=== PATIENT | male | born 1940 | race Caucasian/White ===

== ENCOUNTER 2016-08-23 21:58 | Inpatient (IN) | payer MEDICARE ==
[~2016-08-23] VITALS: Ht 177.8 cm; Wt 69.9 kg
[2016-08-23] MEDS ORDERED: ASPI81TA31 PO (22:22)
[2016-08-23] MEDS ORDERED: ATOR20TA PO (22:22)
[2016-08-23] MEDS ORDERED: AMIO200T2 PO (22:22)
[2016-08-23] MEDS ORDERED: FERR-56 PO (22:23)
[2016-08-23] MEDS ORDERED: ISOS10TA2 PO (22:29)
[2016-08-23] MEDS ORDERED: DIPH25CA83 PO (22:29)
[2016-08-23] MEDS ORDERED: BENZ1LOZ58 PO (22:29)
[2016-08-23] MEDS ORDERED: HYDR-894 PO (22:29)
[2016-08-23] MEDS ORDERED: NEOMY/BACITRA/POLYMYXIN B OINT UD PACKET TP ONE ×2 (22:30→22:42)
--- NOTE | 2016-08-23 22:39 | NUR ---
Patient medically cleared per ERMD, Pt. admitted to GPS, under care of Dr. Epps Belongs List completed.
[2016-08-23 22:50] VITALS: BP 113/67
[2016-08-23] MEDS ORDERED: MAG HYDROX/AL HYDROX/SIMETH 30 ML LIQUID UDC PO PRN (23:00)
[2016-08-23] MEDS ORDERED: MAGNESIUM HYDROXIDE 30 ML LIQUID UDC PO PRN (23:00)
[2016-08-23] MEDS ORDERED: ACETAMINOPHEN 650 MG SUPP.RECT RC PRN (23:00)
--- NOTE | 2016-08-23 23:30 | NUR ---
NEW ADMIT PT IS A 76 YEAR OLD MALE ADMIT TO MHU ON 5150 DTO. ACCORDING TO HOLD PT REFUSING MEDICATION AND HAD ACTING OUT EPISODE WHERE [facility] WHERE HE BECAME AGITATED WITH STAFF AND THREW PHONE IN TO NURSING STATION. UPON FACE TO FACE PT IS AOX3, INITIALLY PRESENTED CALM AND COOPERATIVE BUT BECAME HYPERVERBAL, PRESSURED SPEECH AND DISORGANIZED THOUGHT. PT RAMBLES ABOUT EX- AND MAKES DELUSIONAL STATEMENTS THAT HE IS PART OF THE SERENITY. PT IS ABLE TO BE REDIRECTED AND REFUSING MEDIATION AT THIS TIME. DENIES ANY SI/HI. DENIES A/V HALLUCINATIONS. NO ACUTE DISTRESS NOTED. SKIN TEAR NOTED TO RIGHT ARM AND ABRASION TO LEFT ARM. SAFETY MEASURES MAINTAINED.
[2016-08-23] MEDS ORDERED: ASPIRIN 81 MG TAB.CHEW PO SCH (23:45)
[2016-08-24] MEDS: ZOLPIDEM 5 MG TABLET PO PRN ×2 (00:41→22:54)
[2016-08-24] MEDS ORDERED: ZOLPIDEM 5 MG TABLET ONE (00:50)
[2016-08-24 07:30] VITALS: BP 161/94
[2016-08-24] MEDS: ISOSORBIDE DINITRATE 10 MG TABLET PO SCH ×3 (07:59→21:00)
[2016-08-24] MEDS: AMIODARONE HCL 200 MG TABLET PO SCH ×3 (08:00→21:00)
[2016-08-24] MEDS: FERROUS SULFATE 325 MG TABEC PO SCH ×3 (08:05→21:00)
[2016-08-24] MEDS: ASPIRIN 81 MG TAB.CHEW PO SCH (08:05)
[2016-08-24 11:30] VITALS: BP 123/78
--- NOTE | 2016-08-24 14:00 | NUR ---
GPS/RN- Mary Khalil, N.P. notified of patient fall history at facility and bruising on buttocks, orders received for xrays
[2016-08-24] MEDS: ACETAMINOPHEN 325 MG TABLET PO PRN ×2 (15:13→23:35)
--- NOTE | 2016-08-24 15:40 | NUR ---
Initial discharge instructions: Patient was residing at [facility] [[address] [place] [address]].Spoke with Kristina at the facility who stated the patient may not return.Per pt,he is open to being transferred to the [facility] or another SNF if needed.RAFAT spoke and met with pt's ,Isabela [phone] and daughter,Vida [phone] who agreed to either [facility] transfer or SNF if no bed is available at the [facility].RAFAT called pt's [facility] Senior Enlisted Advisor,Mary [phone] who stated they do not to [facility] transfers there.Per Ventura Hernandez [phone] Transfer center must be called. RAFAT will speak with pt,family,and MD regarding nancy
[2016-08-24 16:00] VITALS: BP 111/65
[2016-08-24] MEDS: DIVALPROEX SPRINKLE 125 MG CAP.SPRINK PO SCH (16:18)
[2016-08-24] MEDS: OLANZAPINE ZYDIS 5 MG TAB.RAPDIS PO SCH ×2 (16:18→20:09)
[2016-08-24 20:05] VITALS: BP 126/64
[2016-08-24] MEDS: ATORVASTATIN 20 MG TABLET PO SCH (20:09)
--- NOTE | 2016-08-24 23:36 | NUR ---
PT C/O BACK PAIN AND REQUESTED FOR TYLE, MED GIVEN, BUT PT STARTED COUGHING AND SPIT OUT MED, WILL CONTINUE TO MONITOR.
[2016-08-25 07:15] LABS: BASOPHILS % (AUTO) 1.3 % (0.0-2.0); EOSINOPHILS # (AUTO) 0.2 K/uL (0.0-0.7); EOSINOPHILS % (AUTO) 5.9 % (0.0-7.0); HEMATOCRIT 26.7 % (36.7-47.1); HEMOGLOBIN 8.8 g/dL (12.5-16.3); LYMPHOCYTES # (AUTO) 0.7 K/uL (20.0-40.0); LYMPHOCYTES % (AUTO) 25.1 % (20.5-51.5); MEAN CORPUSCULAR HEMOGLOBIN 29.2 uug (23.8-33.4); MEAN CORPUSCULAR HGB CONC 33 g/dL (32.5-36.3); MEAN CORPUSCULAR VOLUME 88.9 fL (73.0-96.2); MONOCYTES # (AUTO) 0.3 K/uL (2.0-10.0); MONOCYTES % (AUTO) 11.5 % (0.0-11.0); NEUTROPHILS # (AUTO) 1.4 K/uL (1.8-8.9); NEUTROPHILS % (AUTO) 56.2 % (38.5-71.5); PLATELET COUNT (AUTO) 127 K/uL (152-348); RED CELL DISTRIBUTION WIDTH 15.1 % (12.1-16.2); WHITE BLOOD COUNT (AUTO) 2.6 K/uL (3.6-10.2)
[2016-08-25 07:30] VITALS: BP 131/77
[2016-08-25 07:42] LABS: THYROID STIMULATING HORMONE 3.851 mIU/mL (0.358-3.740)
[2016-08-25] MEDS: OLANZAPINE ZYDIS 5 MG TAB.RAPDIS PO SCH ×3 (08:01→21:16)
[2016-08-25] MEDS: AMIODARONE HCL 200 MG TABLET PO SCH ×2 (08:03→21:14)
[2016-08-25] MEDS: ISOSORBIDE DINITRATE 10 MG TABLET PO SCH ×2 (08:03→21:15)
[2016-08-25 08:09] LABS: BILIRUBIN,TOTAL 0.8 mg/dL (0.2-1.0); CALCIUM 8.5 mg/dL (8.5-10.1); MAGNESIUM 1.8 mg/dL (1.8-2.4); PHOSPHOROUS 4.2 mg/dL (2.5-4.9); POTASSIUM 4.3 mmol/L (3.5-5.1); TOTAL PROTEIN, SERUM 6.4 g/dL (6.4-8.2)
[2016-08-25] MEDS: DIVALPROEX SPRINKLE 125 MG CAP.SPRINK PO SCH (08:12)
[2016-08-25] MEDS: FERROUS SULFATE 325 MG TABEC PO SCH ×2 (08:12→21:14)
[2016-08-25] MEDS: ASPIRIN 81 MG TAB.CHEW PO SCH (08:12)
[2016-08-25] MEDS: NICOTINE 14 MG/24HR PATCH TD SCH (08:12)
[2016-08-25 08:13] LABS: CREATININE 1.7 mg/dL (0.6-1.3)
[2016-08-25 11:08] LABS: EOSINOPHILS % (MANUAL) 6 % (0-8); LYMPHOCYTES % (MANUAL) 28 % (20-40); MONOCYTES % (MANUAL) 9 % (2-10); NEUTROPHILS % (MANUAL) 57 % (42-75)
[2016-08-25 11:09] LABS: ANISOCYTOSIS 1+; PLATELET ESTIMATE SLIGHT DECREASED
[2016-08-25] MEDS: ACETAMINOPHEN 325 MG TABLET PO PRN (12:33)
[2016-08-25] MEDS: GABAPENTIN 100 MG CAPSULE PO SCH ×2 (12:33→16:03)
[2016-08-25 16:05] VITALS: BP 124/70
[2016-08-25 20:58] VITALS: BP 119/83
[2016-08-25] MEDS: ATORVASTATIN 20 MG TABLET PO SCH (21:15)
[2016-08-25] MEDS: ZOLPIDEM 5 MG TABLET PO PRN (21:17)
[2016-08-26] MEDS: LORAZEPAM 0.5 MG TABLET PO PRN ×2 (04:19→21:10)
[2016-08-26 07:30] VITALS: BP 146/86
[2016-08-26 08:58] LABS: BASOPHILS % (AUTO) 1.1 % (0.0-2.0); EOSINOPHILS # (AUTO) 0.1 K/uL (0.0-0.7); EOSINOPHILS % (AUTO) 4.8 % (0.0-7.0); HEMATOCRIT 26.4 % (36.7-47.1); HEMOGLOBIN 8.9 g/dL (12.5-16.3); LYMPHOCYTES # (AUTO) 0.7 K/uL (20.0-40.0); LYMPHOCYTES % (AUTO) 23.6 % (20.5-51.5); MEAN CORPUSCULAR HEMOGLOBIN 30.2 uug (23.8-33.4); MEAN CORPUSCULAR HGB CONC 34 g/dL (32.5-36.3); MEAN CORPUSCULAR VOLUME 89.3 fL (73.0-96.2); MONOCYTES # (AUTO) 0.3 K/uL (2.0-10.0); MONOCYTES % (AUTO) 11.8 % (0.0-11.0); NEUTROPHILS # (AUTO) 1.8 K/uL (1.8-8.9); NEUTROPHILS % (AUTO) 58.7 % (38.5-71.5); PLATELET COUNT (AUTO) 133 K/uL (152-348); RED BLOOD CELL COUNT(AUTO) 2.95 MIL/uL (4.06-5.63); WHITE BLOOD COUNT (AUTO) 2.9 K/uL (3.6-10.2)
[2016-08-26] MEDS: NICOTINE 14 MG/24HR PATCH TD SCH (09:00)
[2016-08-26 09:08] LABS: CALCIUM 8.6 mg/dL (8.5-10.1); POTASSIUM 4.7 mmol/L (3.5-5.1)
[2016-08-26 09:11] LABS: CREATININE 1.6 mg/dL (0.6-1.3)
[2016-08-26] MEDS: ISOSORBIDE DINITRATE 10 MG TABLET PO SCH ×2 (09:23→21:10)
[2016-08-26] MEDS: GABAPENTIN 100 MG CAPSULE PO SCH ×3 (09:23→17:06)
[2016-08-26] MEDS: OLANZAPINE ZYDIS 5 MG TAB.RAPDIS PO SCH ×3 (09:24→21:07)
[2016-08-26] MEDS: AMIODARONE HCL 200 MG TABLET PO SCH ×2 (09:24→21:09)
[2016-08-26] MEDS: FERROUS SULFATE 325 MG TABEC PO SCH ×2 (09:24→21:10)
[2016-08-26] MEDS: ACETAMINOPHEN 325 MG TABLET PO PRN (09:25)
[2016-08-26 09:48] LABS: EOSINOPHILS % (MANUAL) 5 % (0-8); LYMPHOCYTES % (MANUAL) 28 % (20-40); MONOCYTES % (MANUAL) 10 % (2-10); MYELOCYTES % 1 % (0-0); NEUTROPHILS % (MANUAL) 56 % (42-75)
[2016-08-26 09:49] LABS: ANISOCYTOSIS 1+
[2016-08-26 16:00] VITALS: BP 124/76
[2016-08-26 21:09] VITALS: BP 138/80
[2016-08-26] MEDS: ATORVASTATIN 20 MG TABLET PO SCH (21:10)
--- NOTE | 2016-08-26 23:07 | NUR ---
NSG/GPS PATIENT FIRST OBSERVED AWAKE ON UNIT, PACING HALLWAYS WITH FLAT AFFECT, LOW MOOD. PATIENTS APPEARANCE POOR, DISHEVELED AND UNKEMPT. PATIENT DISPLAYS POOR INTERACTION TOWARDS STAFF AND PEERS, INAPPROPRIATE WHEN MAKING REQUESTS, BECOMES INCREASINGLY AGITATED IF NEEDS ARE NOT MET IMMEDIATELY. AT APPROX. 2004 PATIENT YELLED OUT FROM DINNING ROOM, NURSE ARRIVED AND FOUND PATIENT ON THE FLOOR. NURSE REQUESTED FROM THE PATIENT TO REMAIN IN THE SAME POSITION WHILE SHE WENT OUT TO CALL FOR HELP AND TO AVOID FURTHER INJURY. PATIENT OBSERVED TO TURN OVER FROM BACK (SUPINE POSITION) FROM LEFT TO RIGHT INTO PRONE POSITION. NEXT, STAFF NOTICED BLOOD LOCATED ON RIGHT ELBOW, STAFF THEN GATHERED UP SUPPLIES TO RINSE AND FURTHER ASSESS RIGHT ELBOW, NURSING CLEANSED AREA PATIENT YELLED OUT INSULTS TOWARDS STAFF, STATED HE HAD BROKEN HIS CERVICAL SPINE, AND WAS GOING TO [facility]. PATIENT CONTINUED TO COMPLAIN OF PAIN AT THIS TIME STATING HIS KNEES HURT. AT THIS TIME PATIENT WAS PLACING BODY WEIGHT ON BOTH ARMS AND ELBOWS (PLANK POSITION) PATIENT THEN STATED HIS SHOULDER HURT AND IT WAS BROKEN. PATIENT REFUSED VITAL SIGNS, PATIENT YELLED INSULTS TOWARDS ALL STAFF MAKING ATTEMPTS TO ASSIST HIM OFF THE FLOOR. PHYSICIAN NOTIFIED ORDERS OBTAINED AND CARRIED OUT. PATIENT ASSISTED TO ANA CHAIR IN COMFORTABLE POSITION, PATIENT COMPLIANT WITH HS MEDICATION, CONTINUED TO DISPLAY VERBALLY ABUSIVE BEHAVIOR TOWARDS STAFF AND PEERS, CONTINUED TO HAVE DISORGANIZED THOUGHT PROCESS, YELLING OUT, DEMANDING FOR STAFF TO CALL THE [facility] NOW! I AM GOING TO [facility], A FEW OF THE STATEMENTS MADE BY PATIENT OTHERS INCLUDED INSULTS TO STAFF. UNCOOPERATIVE WHILE XRAYS WERE BEING CONDUCTED. PATIENT WILL CONTINUE TO REQUIRE OBSERVATION FOR SAFETY. PATIENT OBSERVED TO WALK TO BATHROOM WITHOUT ASSIST, REFUSED ALL ASSIST OFFERED BY STAFF. PATIENT AGREED TO VITAL SIGNS BP, 139/85, O2SAT AT 99 % AND HR 69. NO DISTRESS NOTED. PATIENT DENIED PAIN. NURSING TO FOLLOW UP XRAY RESULTS. Addendum: 08/26/16 at 1346 by UDAY OCAMPO RN NSG/GPS CLARIFICATION, NURSE ASKED PATIENT TO DESCRIBE THE SOURCE OF PAIN AT THE TIME OF ASSESSMENT FOR WHAT APPEARED TO BE A FALL, WHEN ASKED IF IT WAS THE RIGHT KNEE, HIS RESPONSE WAS "NO", HE THEN STATED IT IS THE OTHER ONE, WHEN NURSE ASK, AGAIN FOR CLARIFICATION, IS IT THE LEFT KNEE, PATIENT THEN STATED, "YES, HOW MANY KNEES DO I HAVE?". THE SAME WAS REPEATED WHILE CONDUCTING ELBOW ASSESSMENT, WITH THE EXCEPTION FOR THIS HE COMPLAINED OF HAVING PAIN ON BOTH RIGHT AND LEFT ELBOW.
[2016-08-27 07:30] VITALS: BP 123/81
[2016-08-27] MEDS: OLANZAPINE ZYDIS 5 MG TAB.RAPDIS PO SCH ×3 (08:31→20:50)
[2016-08-27] MEDS: ISOSORBIDE DINITRATE 10 MG TABLET PO SCH ×2 (08:31→20:51)
[2016-08-27] MEDS: GABAPENTIN 100 MG CAPSULE PO SCH ×3 (08:31→17:15)
[2016-08-27] MEDS: AMIODARONE HCL 200 MG TABLET PO SCH ×2 (08:31→20:50)
[2016-08-27] MEDS: FERROUS SULFATE 325 MG TABEC PO SCH ×2 (08:31→21:00)
[2016-08-27] MEDS: NICOTINE 14 MG/24HR PATCH TD SCH (08:40)
[2016-08-27] MEDS: ACETAMINOPHEN 325 MG TABLET PO PRN (11:43)
[2016-08-27 16:00] VITALS: BP 124/71
[2016-08-27] MEDS: ATORVASTATIN 20 MG TABLET PO SCH (20:51)
[2016-08-27 21:25] VITALS: BP 127/74
[2016-08-28 07:30] VITALS: BP 129/78
[2016-08-28] MEDS: OLANZAPINE ZYDIS 5 MG TAB.RAPDIS PO SCH ×3 (08:03→20:28)
[2016-08-28] MEDS: FERROUS SULFATE 325 MG TABEC PO SCH ×2 (08:04→20:39)
[2016-08-28] MEDS: GABAPENTIN 100 MG CAPSULE PO SCH ×2 (08:04→17:22)
[2016-08-28] MEDS: NICOTINE 14 MG/24HR PATCH TD SCH (08:04)
[2016-08-28] MEDS: ISOSORBIDE DINITRATE 10 MG TABLET PO SCH ×2 (08:04→20:28)
[2016-08-28] MEDS: AMIODARONE HCL 200 MG TABLET PO SCH ×2 (08:04→20:28)
[2016-08-28 08:14] LABS: ALBUMIN 3.5 g/dL (3.4-5.0); BILIRUBIN,TOTAL 1.2 mg/dL (0.2-1.0); CALCIUM 9.3 mg/dL (8.5-10.1); MAGNESIUM 1.9 mg/dL (1.8-2.4); PHOSPHOROUS 4.2 mg/dL (2.5-4.9); POTASSIUM 4.4 mmol/L (3.5-5.1); TOTAL PROTEIN, SERUM 7.3 g/dL (6.4-8.2)
[2016-08-28 08:16] LABS: CREATININE 1.7 mg/dL (0.6-1.3)
[2016-08-28 08:28] LABS: BASOPHILS % (AUTO) 1.1 % (0.0-2.0); EOSINOPHILS # (AUTO) 0.2 K/uL (0.0-0.7); EOSINOPHILS % (AUTO) 5.3 % (0.0-7.0); HEMATOCRIT 28.9 % (36.7-47.1); HEMOGLOBIN 9.9 g/dL (12.5-16.3); LYMPHOCYTES # (AUTO) 0.9 K/uL (20.0-40.0); LYMPHOCYTES % (AUTO) 22.5 % (20.5-51.5); MEAN CORPUSCULAR HEMOGLOBIN 30.4 uug (23.8-33.4); MEAN CORPUSCULAR HGB CONC 34 g/dL (32.5-36.3); MEAN CORPUSCULAR VOLUME 89.1 fL (73.0-96.2); MONOCYTES # (AUTO) 0.4 K/uL (2.0-10.0); MONOCYTES % (AUTO) 9.5 % (0.0-11.0); NEUTROPHILS # (AUTO) 2.4 K/uL (1.8-8.9); NEUTROPHILS % (AUTO) 61.6 % (38.5-71.5); PLATELET COUNT (AUTO) 164 K/uL (152-348); RED BLOOD CELL COUNT(AUTO) 3.25 MIL/uL (4.06-5.63); RED CELL DISTRIBUTION WIDTH 15.2 % (12.1-16.2)
[2016-08-28 08:38] LABS: WHITE BLOOD COUNT (AUTO) 3.9 K/uL (3.6-10.2)
[2016-08-28] MEDS: ACETAMINOPHEN 325 MG TABLET PO PRN ×2 (09:22→19:47)
[2016-08-28 15:54] VITALS: BP 117/70
[2016-08-28] MEDS: ATORVASTATIN 20 MG TABLET PO SCH (20:27)
[2016-08-28 21:06] VITALS: BP 123/75
--- NOTE | 2016-08-28 22:00 | NUR ---
received to care, ambulating in the hallway, pleasant upon approach. compliant with medications and staff direction. remains needy and attention seeking; firm limits set on behavior. as of 2199, he appears to be asleep. no distress noted. will continue to monitor closely.
--- NOTE | 2016-08-29 06:00 | NUR ---
slept 5.5 hours.
[2016-08-29 07:30] VITALS: BP 131/71
[2016-08-29] MEDS: NICOTINE 14 MG/24HR PATCH TD SCH (09:00)
[2016-08-29] MEDS: AMIODARONE HCL 200 MG TABLET PO SCH ×2 (09:02→20:25)
[2016-08-29] MEDS: GABAPENTIN 100 MG CAPSULE PO SCH ×2 (09:02→16:53)
[2016-08-29] MEDS: OLANZAPINE ZYDIS 5 MG TAB.RAPDIS PO SCH ×3 (09:02→20:25)
[2016-08-29] MEDS: ISOSORBIDE DINITRATE 10 MG TABLET PO SCH ×2 (09:03→20:25)
[2016-08-29] MEDS: FERROUS SULFATE 325 MG TABEC PO SCH ×2 (09:04→20:25)
[2016-08-29] MEDS: ACETAMINOPHEN 325 MG TABLET PO PRN (09:39)
[2016-08-29] MEDS: ATORVASTATIN 20 MG TABLET PO SCH (20:25)
[2016-08-29 20:42] VITALS: BP 140/78
--- NOTE | 2016-08-29 22:00 | NUR ---
received to care, ambulating in the hallway, pleasant upon approach. interacts well with peers and staff. behavior is appropriate. compliant with medications and staff direction. as of 2200, he is asleep, in bed. no distress noted. will continue to monitor closely.
[2016-08-30] MEDS: ACETAMINOPHEN 325 MG TABLET PO PRN ×2 (00:26→14:36)
--- NOTE | 2016-08-30 00:26 | NUR ---
PT IS NOW AWAKE. C/O RIGHT SHOULDER PAIN, 6/10 ON PAIN SCALE. PRN TYLENOL WAS GIVEN. WILL CONTINUE TO MONITOR CLOSELY.
--- NOTE | 2016-08-30 01:30 | NUR ---
appears to be asleep. no distress noted.
--- NOTE | 2016-08-30 06:00 | NUR ---
slept 7 hours.
[2016-08-30] MEDS: AMIODARONE HCL 200 MG TABLET PO SCH ×2 (08:30→21:00)
[2016-08-30] MEDS: FERROUS SULFATE 325 MG TABEC PO SCH ×2 (08:30→21:00)
[2016-08-30] MEDS: NICOTINE 14 MG/24HR PATCH TD SCH (08:30)
[2016-08-30] MEDS: OLANZAPINE ZYDIS 5 MG TAB.RAPDIS PO SCH ×3 (08:30→21:00)
[2016-08-30] MEDS: ISOSORBIDE DINITRATE 10 MG TABLET PO SCH ×2 (08:30→21:00)
[2016-08-30] MEDS: GABAPENTIN 100 MG CAPSULE PO SCH ×2 (08:30→17:27)
--- NOTE | 2016-08-30 14:15 | NUR ---
WEEKLY MEETING TOLERATING CURRENT DIET (CARDIAC) , EATING 100% OF MEALS ANTHROPOMETRY: HT IS 70",CURRENT WT IS 154LB,BMI 22.1-WNL, 3LB WT GAIN IN 6 DAYS NOT SIGNIFICANT LABS:WBC 3.9-WNL, RBC-3.25,HG/HCT-9.9/28.9,BUN/CR-29/1.7(H/H) MEDICATION: NO D&N NO NUTRITION DIAGNOSIS IDENTIFIED NO INTERVENTION MONITOR;PO INTAKE,WT,NEW LABS Addendum: 08/30/16 at [address] Amended: Links added.
[2016-08-30 16:00] VITALS: BP 133/80
[2016-08-30 20:07] VITALS: BP 109/69
[2016-08-30] MEDS: ATORVASTATIN 20 MG TABLET PO SCH (21:00)
--- NOTE | 2016-08-30 22:00 | NUR ---
received to care, suspicious, seclusive, and verbally abusive. stated "f--k you. 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 refused all medications. paces the hallway. asks for snacks every 10 or 15 minutes. as of 2199, he appears calmer, but remains hostile. currently in tv room. PRN offered for anxiety, but he continues to refuse. will continue to monitor closely, and set firm limits on behavior.
--- NOTE | 2016-08-31 02:39 | NUR ---
slept for a few hours. continues to pace the hallway, and ask for snacks. firm limits set. will continue to monitor closely.
--- NOTE | 2016-08-31 05:10 | NUR ---
PT OUT IN THE NURSES STATION C/O NOSE BLEED FROM HIS RIGHT NOSTRIL, STATING HE BLEW THAT SIDE OF HIS NOSE SO HARD. BLOOD NOTED DRIPPING DOWN, PT REDIRECTED TO HIS ROOM AND ASKED TO SIT UP ON HIS BED, PRESSURE APPLIED WITH 4X4 GAUZE, COLD COMPRESS ALSO APPLIED ON THE FORE HEAD, VITAL SIGN CHECKED; BP 144/91, HR 72. WILL CONTINUE TO MONITOR.
--- NOTE | 2016-08-31 05:20 | NUR ---
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 [employer] INTERFACE DEVELOPER MAHENDRA NOTIFIED, PT TAKEN TO ER.
--- NOTE | 2016-08-31 06:05 | NUR ---
PT BACK TO THE UNIT, WILL CONTINUE TO MONITOR CLOSELY.
--- NOTE | 2016-08-31 06:30 | NUR ---
SLEPT 4 HOURS, TOTAL.
[2016-08-31 07:30] VITALS: BP 129/75
[2016-08-31] MEDS: GABAPENTIN 100 MG CAPSULE PO SCH (08:46)
[2016-08-31] MEDS: ACETAMINOPHEN 325 MG TABLET PO PRN (08:46)
[2016-08-31] MEDS: OLANZAPINE ZYDIS 5 MG TAB.RAPDIS PO SCH (08:47)
--- NOTE | 2016-08-31 08:50 | NUR ---
DC Note: Patient will be discharged to [facility] [[address] [place] [address]; ] via ambulance at 1:00 pm. Spoke with CJ at the facility who stated he would accept the patient today. Spoke with patients , Isabela Cox [phone] who is aware and agreeable with discharge plans. Patient is aware and agreeable with discharge plans. Patient will follow-up with ([facility]) and (Psychiatrist) at the facility. For smoking cessation, patient was referred to [employer] [facility]-[employer] and [employer] [phone]. Addendum: 08/31/16 at 1124 by UDAY DOUGLASS [facility]
[2016-08-31 09:00] VITALS: BP 129/75
[2016-08-31] MEDS: AMIODARONE HCL 200 MG TABLET PO SCH (09:00)
[2016-08-31] MEDS: ISOSORBIDE DINITRATE 10 MG TABLET PO SCH (09:00)
[2016-08-31] MEDS: NICOTINE 14 MG/24HR PATCH TD SCH (09:00)
[2016-08-31] MEDS: FERROUS SULFATE 325 MG TABEC PO SCH (09:00)
[2016-08-31] MEDS: LORAZEPAM 0.5 MG TABLET PO PRN (11:04)
--- NOTE | 2016-08-31 14:30 | NUR ---
PT WAS DISCHARGED TO [facility]IA [facility]BULANCE WITH ALL BELONGINGS, EXIT CARE, AND TMS. PT DENIES SI AND HI, NO AGGRESSION AT THIS TIME. REPORT WAS GIVEN TO ALAN.
== END 2016-08-31 14:30 | DRG 885 ==
LOC: ER 22:05 → GPS 22:36
PROVIDERS: ADMIT Psychiatry & Neurology Psychiatry; ATTEND Internal Medicine
DX: F31.64 Bipolar disorder, current episode mixed, severe, with psychotic features (principal); N17.0 Acute kidney failure with tubular necrosis; N18.9 Chronic kidney disease, unspecified; I13.0 Hypertensive heart and chronic kidney disease with heart failure and stage 1 through stage 4 chronic kidney disease, or unspecified chronic kidney disease; D61.818 Other pancytopenia; I50.32 Chronic diastolic (congestive) heart failure; F29 Unspecified psychosis not due to a substance or known physiological condition; I25.10 Atherosclerotic heart disease of native coronary artery without angina pectoris; D63.8 Anemia in other chronic diseases classified elsewhere; E03.9 Hypothyroidism, unspecified; E78.5 Hyperlipidemia, unspecified; F17.200 Nicotine dependence, unspecified, uncomplicated; M16.0 Bilateral primary osteoarthritis of hip; Z87.440 Personal history of urinary (tract) infections; Z87.442 Personal history of urinary calculi; Z91.14 Patient's other noncompliance with medication regimen; Z95.0 Presence of cardiac pacemaker; F41.9 Anxiety disorder, unspecified; D64.9 Anemia, unspecified; R60.0 Localized edema; Z91.81 History of falling; R73.9 Hyperglycemia, unspecified; J84.10 Pulmonary fibrosis, unspecified; Q78.4 Enchondromatosis; E80.6 Other disorders of bilirubin metabolism
CPT/HCPCS: 36415; 71010; 73030; 73080; 73521; 73562; 83550; 83735; 84100; 84443; 85025; 93005; 97001; A4663